=== PATIENT | female | born 1945 | race Caucasian/White ===

== ENCOUNTER 2017-03-03 08:00 | Inpatient (IN) | payer MEDICARE, OTHER ==
[~2017-03-03 08:00] MED LIST: ACETAMINOPHEN 1,000 MG/100 ML BTL IV ONE; CELECOXIB 100 MG CAPSULE PO ONE; FAMOTIDINE 20MG TABLET PO ONE; MECLIZINE 25 MG TABLET PO ONE; METOCLOPRAMIDE 10 MG TABLET PO ONE; VANCOMYCIN HCL 1,000 MG in 0.9 % SODIUM CHLORIDE 250ML 250 ML IVPB ONE
[2017-03-16] MEDS ORDERED: CELECOXIB 100 MG CAPSULE PO ONE (06:00)
[2017-03-16] MEDS ORDERED: METOCLOPRAMIDE 10 MG TABLET PO ONE (06:00)
[2017-03-16] MEDS ORDERED: FAMOTIDINE 20MG TABLET PO ONE (06:00)
[2017-03-16] MEDS ORDERED: ACETAMINOPHEN 1,000 MG/100 ML BTL IV ONE (06:00)
[2017-03-16] MEDS ORDERED: MECLIZINE 25 MG TABLET PO ONE (06:00)
[2017-03-16] MEDS ORDERED: VANCOMYCIN HCL 1,000 MG in 0.9 % SODIUM CHLORIDE 250ML 250 ML IVPB ONE (06:00)
[2017-03-16 10:49] LABS: BASO % 0.5 % (0-6); GRAN % 79.1 % (47-80); HEMATOCRIT 33.6 % (35.0-47.0); HEMOGLOBIN 9.9 gm/dl (11.6-16.0); LYMPH % 12.1 % (16-45); MEAN CELL VOLUME 82.4 fl (81-97); MEAN CORPUSCULAR HGB CONC 29.5 g/dl (32-36); MEAN PLATELET VOLUME 8.5 fl (7.4-10.4); MONO % 7.3 % (0-9); PLATELET COUNT 478 K/uL (130-400); RED BLOOD COUNT 4.08 M/uL (3.80-5.40); RED CELL DISTRIBUTION WIDTH 19.5 % (11.5-14.5)
[2017-03-16 10:51] LABS: MEAN CORPUSCULAR HEMOGLOBIN 24.2 pg (27-33)
[2017-03-16 11:27] LABS: ABO GROUP O; ANTIBODY SCREEN NEGATIVE (NEGATIVE); RH TYPE POSITIVE
[2017-03-16] MEDS ORDERED: HYDROMORPHONE HCL 2 MG/ML VIAL IV ONE ×2 (13:17→14:00)
[2017-03-16] MEDS ORDERED: FENTANYL PF 100MCG/2ML VIAL IV ONE (14:00)
[2017-03-16] MEDS ORDERED: *PACU ONLY* KETAMINE HCL 10 MG/ML (20ML) VIAL IV ONE (14:00)
[2017-03-16] MEDS ORDERED: MIDAZOLAM HCL 2MG/2ML VIAL IV ONE (14:00)
[2017-03-16] MEDS ORDERED: HYDROMORPHONE HCL 1 MG/ML SYRINGE IM PRN (15:12)
[2017-03-16] MEDS ORDERED: MAGNESIUM HYDROXIDE 30 ML UDC PO PRN (15:12)
[2017-03-16] MEDS ORDERED: METOCLOPRAMIDE HCL 10 MG/2 ML VIAL IVP PRN (15:12)
[2017-03-16] MEDS ORDERED: HYDROCODONE/APAP 5/325MG TABLET PO PRN ×2 (15:12)
[2017-03-16] MEDS ORDERED: ACETAMINOPHEN 325 MG TAB PO PRN (15:12)
[2017-03-16] MEDS ORDERED: AL HYDROX/MAG HYDROX 30ML UD PO PRN (15:12)
[2017-03-16] MEDS ORDERED: HYDROMORPHONE HCL 2 MG/ML VIAL IM PRN (15:12)
[2017-03-16] MEDS ORDERED: BISACODYL 10 MG SUPP RC PRN (15:12)
[2017-03-16] MEDS ORDERED: NALOXONE 0.4 MG/1 ML VIAL IVP PRN (15:12)
[2017-03-16] MEDS ORDERED: TRAMADOL HCL 50 MG TABLET PO PRN ×2 (15:12)
[2017-03-16] MEDS ORDERED: PROMETHAZINE HCL 12.5 MG in 0.9 % SODIUM CHLORIDE 100ML 50 ML IVPB PRN (15:12)
[2017-03-16] MEDS ORDERED: MORPHINE SULFATE 5 MG/ML PFS IVP PRN ×4 (15:12)
[2017-03-16] MEDS ORDERED: ACETAMINOPHEN W/ CODEINE 300MG/60MG TABLET PO PRN ×2 (15:12)
[2017-03-16] MEDS ORDERED: KETOROLAC 30 MG/ML VIAL IVP PRN ×2 (15:12)
[2017-03-16] MEDS ORDERED: ZOLPIDEM TARTRATE 5 MG TABLET PO PRN (15:12)
[2017-03-16] MEDS ORDERED: DIPHENHYDRAMINE HCL 25 MG CAPSULE PO PRN (15:12)
[2017-03-16] MEDS ORDERED: ACETAMINOPHEN W/ CODEINE 300MG/30MG TABLET PO PRN ×2 (15:12)
[2017-03-16] MEDS ORDERED: ONDANSETRON HCL IV 4 MG/2 ML VIAL IVP PRN (15:12)
[2017-03-16] MEDS ORDERED: HYDROCODONE/APAP 7.5/325MG TABLET PO PRN (15:12)
[2017-03-16] MEDS: PANTOPRAZOLE SODIUM 40 MG TABLET PO SCH (19:34)
[2017-03-16] MEDS: HYDROCODONE/APAP 7.5/325MG TABLET PO PRN (21:01)
[2017-03-16] MEDS: FERROUS SULFATE 325 MG TAB PO SCH (21:05)
[2017-03-16] MEDS: DOCUSATE SODIUM 100 MG CAPSULE PO SCH (21:05)
[2017-03-16] MEDS: DEXTROSE 5 % AND 0.9 % NACL 1,000 ML IV PRN (23:59)
[2017-03-17] MEDS: VANCOMYCIN HCL 1,000 MG in DEXTROSE 5 % IN WATER 250 ML IVPB SCH ×4 (00:11→11:36)
[2017-03-17] MEDS: HYDROCODONE/APAP 7.5/325MG TABLET PO PRN ×3 (03:00→13:32)
[2017-03-17] MEDS: PANTOPRAZOLE SODIUM 40 MG TABLET PO SCH (06:19)
[2017-03-17 06:55] LABS: HEMATOCRIT 28.8 % (35.0-47.0); HEMOGLOBIN 8.7 gm/dl (11.6-16.0)
--- NOTE | 2017-03-17 07:20 | RADIOLOGY REPORT ---
EXAM: LEFT HIP HISTORY: LEFT HIP ARTHROPLASTY PERFORMED TODAY. TECHNIQUE: A single view of the left hip was obtained. Comparison: None. FINDINGS: There is a left hp prosthesis present. There is no fracture, dislocation or complicating process identified. IMPRESSION: 1. LEFT HIP PROSTHESIS PRESENT. 2. OTHERWISE UNREMARKABLE LEFT HIP EXAMINATION. JOB NUMBER: [id number] MTDD
[2017-03-17] MEDS: DEXTROSE 5 % AND 0.9 % NACL 1,000 ML IV PRN (09:38)
[2017-03-17] MEDS: DOCUSATE SODIUM 100 MG CAPSULE PO SCH (09:41)
[2017-03-17] MEDS: FERROUS SULFATE 325 MG TAB PO SCH (09:41)
[2017-03-17] MEDS ORDERED: CELECOXIB 100 MG CAPSULE PO SCH (10:00)
[2017-03-17] MEDS ORDERED: RIVAROXABAN 10 MG TABLET PO SCH (10:00)
[2017-03-17] MEDS ORDERED: HYDROMORPHONE HCL 2 MG/ML VIAL IV ONE (10:14)
[2017-03-17] MEDS ORDERED: VANCOMYCIN HCL 1 GM VIAL IVPB ONE (10:37)
[2017-03-17] MEDS ORDERED: TRANEXAMIC ACID 1,000 MG/10 ML ML IV ONE (10:37)
--- NOTE | 2017-03-17 10:54 | Rehab Evaluation ---
Patient Information - Patient Information Diagnosis: OA left hip Ordered Treatment: PT Evaluate and Treat Status: Initial Evaluation Surgery: Yes (VIRGILIO left hip) Date of Surgery: 03/17/17 Past Medical/Surgical Hx: PAST MEDICAL/SURGICAL HISTORY Past Surgical History bladder repair RTHA x's 2 hyst nephrectomy left donation oral sx PMH - Respiratory Hx Respiratory Disorders No PMH - Cardiovascular Hx Cardiovascular Disorders No Exercise Tolerance Poor Hx of Migraines Yes: with stress PMH - Neuro Hx Neurological Disorders Yes Hx Headaches Yes PMH - GI Hx Gastrointestinal Disorders Yes Hx Gastroesophageal Reflux Yes Hx of Loss of Appetite Yes: cant eat due to pain Comment: prolapsed rectum PMH - Hx Genitourinary Disorders Yes Hx Bladder Problem Yes: stress incontinence Comment: pt has one kidney PMH - Endocrine Hx Endocrine Disorders No PMH - Musculoskeletal Hx Musculoskeletal Disorders Yes Hx Arthritis Yes Hx Fibromyalgia Yes PMH - Psych Hx Psychiatric Problems Yes Hx Anxiety Yes Hx Depression Yes PMH - Hematology/Oncology Hx Hematology/Oncology Yes Disorders Hx Cancer Yes: 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 Able to do brief eval UES and LES then reviewed hip precautions for left hip, patient able to perform exercises for left hip: heel slide, SLR with assist , quad, glut and ham sets, ankle pumps with minimal pain. Supine to sit with min assist with left LE then sit to stand with verbal cues and CGA for safety with standard walker. Able to ambulate to bathroom with very little assist to use toilet then ambulated into mcallister with proper assist about 100 feet and back to room. Into bed with very little assist then re-attached compressive stockings. OT waiting to work on dressing with patient.) Subjective Information - Subjective Information Per Patient Objective Data - Pain Pain Present: Yes Pain Scale Used: Numeric (1 - 10) (5/10) - Mental Status Patient Orientation: Oriented x3 - Visual Perception Appears within normal limits for therapeutic activities - ROM Within normal limits (except left hip decreased as expected secondary to surgery about 50%.) - Strength/Tone Within normal limits (except left hip decreased about 3/5 except left hip flexors 3-/5) - Coordination Appears within normal limits for therapeutic activities (Some decrease in balance secondary to surgery.) - Bed Mobility Needs Assist (Using trapeze to pull up in bed but believe patient will do well at home with husbands assist.) - Transfers Needs Assist (Only needs slight assist with left LE) - Balance Balance Sitting: Good Balance Standing: Fair - Sensation Intact - Gait Detail (Using standard walker in hospital, has FWW for home and comfortable with same since had other hip replaced three years ago and left hip has been getting worse for some time.) - Special Tests No Therapy Assessment - Therapy Assessment Detail (Patient doing quite well post-surgery and should be able to be discharged home this afternoon after check out on stairs. Not able to do stairs this am secondary to IV.) Patient Education - Patient Education Teaching Topic: Equipment Use, Exercise/Activity, Precautions Response: Return Demonstration Teaching Method: Discussion, Demonstration Teaching Recipient: Patient, Family Barriers To Learning: None Problem List - Problem List Physical Therapy Problem List: Detail (Patient has some issues with decreased mobility, gait and has not performed stairs yet. Exercises going well but having difficulty not letting left hip roll inward.) Goals - Goals Physical Therapy Goals: Patient will be able to demonstrate competency with steps to get into her home, independence with getting into and out of bed, exercises and review hip precautions. Prognosis - Prognosis Good (Expect patient will be able to perform steps this afternoon and working on all other goals so can go home today.) Plan - Plan Physical Therapy Plan: Continue PT this afternoon and check out on stairs, work on longer gait distance, exercises, bed mobility and hip precautions. If patient needs to stay another night, will determine if has passed goals of PT on next visit this afternoon.
--- NOTE | 2017-03-17 13:31 | Rehab Evaluation ---
Patient Information - Patient Information Diagnosis: OA left hip Ordered Treatment: OT Evaluate and Treat Status: Initial Evaluation Surgery: Yes (VIRGILIO left hip) Date of Surgery: 03/17/17 Past Medical/Surgical Hx: PAST MEDICAL/SURGICAL HISTORY Past Surgical History bladder repair RTHA x's 2 hyst nephrectomy left donation oral sx PMH - Respiratory Hx Respiratory Disorders No PMH - Cardiovascular Hx Cardiovascular Disorders No Exercise Tolerance Poor Hx of Migraines Yes: with stress PMH - Neuro Hx Neurological Disorders Yes Hx Headaches Yes PMH - GI Hx Gastrointestinal Disorders Yes Hx Gastroesophageal Reflux Yes Hx of Loss of Appetite Yes: cant eat due to pain Comment: prolapsed rectum PMH - Hx Genitourinary Disorders Yes Hx Bladder Problem Yes: stress incontinence Comment: pt has one kidney PMH - Endocrine Hx Endocrine Disorders No PMH - Musculoskeletal Hx Musculoskeletal Disorders Yes Hx Arthritis Yes Hx Fibromyalgia Yes PMH - Psych Hx Psychiatric Problems Yes Hx Anxiety Yes Hx Depression Yes PMH - Hematology/Oncology Hx Hematology/Oncology Yes Disorders Hx 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 Laundry located on 1st floor. Pt has very supportive spouse who is retired and avaliable to assist whenever needed. Pt has a walk in shower w/ curtain enclosure, hand held shower head, grab bars around toilet and in shower, shower chair, and raised toilet seat. Pt has 3 straight canes and a 4WW w/ seat.) Precautions: None given, [place], Fall - Time With Patient Total Time Spent With Patient (Min): 25 Treatment Procedures: Detail (OT eval LOW) Objective Data - Pain Pain Present: Yes Pain Intensity: 4 Pain Scale Used: Numeric (1 - 10) - Mental Status Patient Orientation: Oriented x3 - Visual Perception Appears within normal limits for therapeutic activities - ROM Within normal limits (BUE's) - Strength/Tone Within normal limits (BUE's) - Coordination Appears within normal limits for therapeutic activities - Bed Mobility Needs Assist (min A for LLE movment off/on bed) - Transfers Independent (sit <> stand t/f using 2 WW) - Balance Balance Sitting: Good Balance Standing: Fair (uses support of 2WW to pull pants over hips.) - Sensation Intact (ifeanyi hands) - ADL's/IADL's Detail (Pt was educated on and demonstrated understanding of modified LB drsg techniques using adaptive equipment such as cutlet maker pork, sock aid, LH sponge, and LH shoe horn. Pt was ind using AD for LB drsg. Pt states (and spouse agrees) that spouse will assist w/ socks and shoes. Pt has a cutlet maker pork at home and will not need to purchase any equipment at this time.) Therapy Assessment - Therapy Assessment Detail (Pt ind and safe w/ LB modified drsg technique. No further inpatient OT needed at this time.) Problem List - Problem List Physical Therapy Problem List: Detail (Patient has some issues with decreased mobility, gait and has not performed stairs yet. Exercises going well but having difficulty not letting left hip roll inward.) Goals - Goals Physical Therapy Goals: Patient will be able to demonstrate competency with steps to get into her home, independence with getting into and out of bed, exercises and review hip precautions. Prognosis - Prognosis Good Plan - Plan Physical Therapy Plan: Continue PT this afternoon and check out on stairs, work on longer gait distance, exercises, bed mobility and hip precautions. If patient needs to stay another night, will determine if has passed goals of PT on next visit this afternoon. Occupational Therapy Plan: No further inpatient OT needed at this time
--- NOTE | 2017-03-17 15:24 | Physical Therapy Tx Note ---
Physical Therapy Tx Note - Treatment Note Tolerated: Good (Patient did extremely well with lunch and getting dressed today , has been up to bathroom. In pm, walked in mcallister to stairs, about 75 feet with standard walker and WBAT, CGA; ambulated down three steps with proper technique using rail and folded walker then used walker to turn around and walked up three steps using rail and folded walker, min assist for safety. Able to ambulate back to room with CGA and standard walker with good technique. Into bed with very little assist with left LE. Able to review exercises and hip precautions.) Total Time Spent With Patient: 30 Physical Therapy Tx Note: Detail (As above, able to perform stairs, exercises, gait with standard walker WBAT, hip precaution review.) Physical Therapy Problem List: Detail (Patient has some issues with decreased mobility, gait and has not performed stairs yet in am day after surgery. Exercises going well but having difficulty not letting left hip roll inward.) Physical Therapy Goals: Patient will be able to demonstrate competency with steps to get into her home, independence with getting into and out of bed, exercises and review hip precautions. Prognosis: Good (Patient has passed all therapy goals and ready for discharge home with .) Physical Therapy Plan: Continue PT this afternoon and check out on stairs, work on longer gait distance, exercises, bed mobility and hip precautions. If patient needs to stay another night, will determine if has passed goals of PT on next visit this afternoon.
--- NOTE | 2017-03-20 09:29 | Discharge Summary ---
DATE: 03/17/2017 HISTORY: This is a 72-year-old female with end-stage left hip arthrosis. Failed nonoperative treatment. Scheduled for left total hip arthroplasty. HOSPITAL COURSE: The patient was admitted on the date of procedure, 03/16/2017. Tolerated well. Had 200 mL of blood loss. Postop she was afebrile, vital signs stable. Neurovascularly intact. Dressing clean, dry, and intact. She had Xarelto for DVT prophylaxis. Pain medication. Antibiotics. Sent to the floor for total hip rehab protocol. Hospital course was uncomplicated. She had acute asymptomatic blood loss anemia. Hemoglobin was 8.6 postop day 1. She did well with therapy and was discharged home on postop day 1. Home with therapy nurse with [facility]. Will continue pre-admission medication with sleeping pill, pain pill, iron, and Xarelto. She will follow up in 2 weeks. REJI
--- NOTE | 2017-03-20 09:30 | Operative Note ---
DATE OF SURGERY: 03/16/2017 PREOPERATIVE DIAGNOSIS: End-stage left hip arthrosis. POSTOPERATIVE DIAGNOSIS: End-stage left hip arthrosis. OPERATION: Left total hip arthroplasty. Surgeon: Raghavendra Antony MD Anesthesia: Spinal. COMPLICATIONS: None. Estimated Blood Loss: Minimal. OPERATIVE FINDINGS: [id number] hip arthrosis. COMPONENTS PLACED: A 2 g vancomycin Mitchell [employer] Nephew cemented Synergy collared stem size 14 high offset with a 32 minus 4 mm cobalt chrome femoral head component, a 50 mm 3-hole Reflection acetabular 2-screw component with 1 acetabular screw, 2 screw caps, centrally-threaded screw cap, and a 35-degree highly cross-linked polyethylene liner. Indications: This is a 72-year-old female who is well known to myself. She is status post right hip arthroplasty done years ago with another surgeon. She is now scheduled for left. She has severe [id number] arthrosis with deformity and she is scheduled for the procedure above. I explained all risks and benefits in detail for the diagnosis and procedure including but not limited to infection, nerve injury, vessel injury, persistent pain, stiffness, numbness, tingling in hip, periprosthetic fracture, need for resection arthroplasty if components are infected or loosen, blood clot, and need for further procedures. All of her questions were answered. The course was outlined. She agreed to proceed. PROCEDURE: The patient brought to the OR and placed in the right lateral decubitus position. The left hip and lower extremity prepped and draped in sterile fashion. Prepped using Chloraprep and draped. A general timeout was performed. Next, a posterior approach incision was marked over the hip. It was infiltrated with 0.5% Marcaine with epinephrine. Skin and subcutaneous dissected down to gluteal fascia. Gluteal fascia split longitudinally. The subgluteal plane was bluntly dissected. Brought in self-retainer. Identified the sciatic nerve, carefully protected at all times. Next, removed the short external rotators, tagged them with #2 Vicryl, cut the capsule and released it proximally and distally and dislocated the femoral head without difficulty. Next, then resected the femoral head about 1.5 cm below the lesser trochanter. Inserted the box osteotome, started reaming by hand working 7 mm, working in 1 mm increments up to size 14. We stopped there to broach a 12. Calcar plane on a 13 and then a 14. We stopped there, as it fit the proximal nicely. Attention then to the acetabulum. Released the capsule anteriorly. Placed the retractor there to retract the proximal femur. Inferior acetabular retractor was placed. We excised the labrum, capsule around the periphery of the acetabulum. She had central erosion pattern. Next, we started reaming in 45 degrees inclination 20 degrees anteversion to ream up to a size 49. We trialed a 50, and it fit nicely medially with down flush. Then we then changed gloves. Irrigated copiously. Impacted down the real 3-hole acetabular shell with a helicopter guide in 45 degrees inclination and 20 degrees anteversion until it was flush medially. Next, we drilled a posterior central superior quadrant screw hole, measured for a 35 mm screw, inserted that screw that had excellent purchase. Next, we placed a trial liner and did a trial reduction. Best combination range of motion, stability, and leg length was with a -4 mm femoral head component high offset neck. This allowed for good abductor tension flexion 90. The hip dislocated still with extension, extra rotation, symmetric leg lengths. Next, we removed all trial components. We then irrigated the acetabulum copiously. Placed 2 screw caps, centrally threaded screw cap, impacted down the real 35-degree hooded highly cross-linked polyethylene liner with the miller in posterior superior quadrant. Next, we placed the cement distally in the femoral canal, injected the cement symmetrically with a suction catheter and inserted the real collar and femoral stem until the collar was flush with the medial calcar again in 15 degrees of anteversion and held it until the cement hardened. We cleaned and dried the trunnion and packed down the real cobalt chrome femoral head component, reduced the hip and found the range of motion revealed the same. We irrigated copiously. We repaired the short external rotators to the abductors with #2 Vicryl stitch. Irrigated again, closed with 2-0 fascial running #2 Quill suture. Irrigated again, closed the skin with 2-0 Vicryl and then zip line was used to close the skin. Previously was injected with multiple sticks of 0.5% Marcaine with epi, 2 g of tranexamic acid and our Exparel mixture around the entire periphery to superficial gluteal muscle, abductors, subcutaneous area. Patient tolerated the procedure well. No intraoperative complications. All sponge and needle counts correct. Recovery stable. Postop x-ray revealed good fit, orientation of components. Placed an abduction pillow. She will likely be discharged tomorrow. REJI
== END 2017-03-17 15:15 | disposition home health service (06) | DRG 470 ==
LOC: MEDSURG 03-16 10:32
PROVIDERS: ADMIT Orthopaedic Surgery; ATTEND Orthopaedic Surgery
PROC: 0SRB069 Replacement of Left Hip Joint with Oxidized Zirconium on Polyethylene Synthetic Substitute, Cemented, Open Approach (ICD-10-PCS; principal; 2017-03-16 13:00)
DX: M16.12 Unilateral primary osteoarthritis, left hip (principal); Z90.5 Acquired absence of kidney
CPT/HCPCS: 85014; 85018; 85025; 86850; 86900; 86901; 97110; 97116; 97165; J7042; J7060

== ENCOUNTER 2017-08-06 14:39 | Emergency (ER) | payer MEDICARE, OTHER ==
[2017-08-06] MEDS ORDERED: ONDANSETRON HCL IV 4 MG/2 ML VIAL IVP ONE (15:13)
[2017-08-06] MEDS ORDERED: 0.9 % SODIUM CHLORIDE 1,000 ML BAG IV ONE ×2 (15:22→17:32)
[2017-08-06] MEDS ORDERED: METOCLOPRAMIDE HCL 10 MG/2 ML VIAL IVP ONE (15:23)
[2017-08-06] MEDS ORDERED: DIPHENHYDRAMINE HCL 50 MG/ML VIAL IVP ONE (15:23)
--- NOTE | 2017-08-06 15:26 | Emergency Department Record ---
History of Present Illness - General Chief complaint: Nausea, Vomiting, Diarrhea Stated complaint: VOMITING,DIARRHEA,HEADACHE Time Seen by Provider: 08/06/17 15:03 Source: Patient Mode of Arrival: Wheelchair Limitations: No limitations - History of Present Illness Initial comments: The patient is here due to a 4-5 day hx of frequent watery diarrhea with now vomiting. She is having some abdominal cramping prior to the vomiting but denies any fever, chills, blood in the stool or vomit or dysuria. The patient states now she is having a migraine KRAFT which is typical for her when she gets sick. There is no hx of CP, SOB, back pain, or visual changes. MD complaint: Diarrhea, Nausea, Vomiting Onset/Timin -: Days(s) Description of Vomiting: Watery Severity: Moderate Severity scale (1-10): 10 Quality: Aching - Related Data Home Medications Medication Instructions Recorded Confirmed Last Taken Aspirin 325 mg PO DAILY 08/06/17 08/06/17 1 Day Ago ~08/05/17 Ibuprofen 200 mg Tablet [Motrin 200 mg PO Q8H PRN 08/06/17 08/06/17 1 Day Ago 200Mg] ~08/05/17 Metoprolol Tartrate 25 mg PO DAILY 08/06/17 08/06/17 1 Day Ago ~08/05/17 Omeprazole 40 mg PO DAILY 08/06/17 08/06/17 1 Day Ago ~08/05/17 Previous Rx's Medication Instructions Recorded Ondansetron [Zofran Odt] 4 mg SL .Q4-6H PRN #12 tab.rapdis 08/06/17 Allergies Allergy/AdvReac Type Severity Reaction Status Date / Time Sulfa (Sulfonamide Allergy HIVES Verified 08/06/17 14:54 Antibiotics) Travel Screening - Travel/Exposure Within Last 30 Days Have you traveled within the last 30 days?: No - Travel/Exposure Within Last Year Have you traveled outside the [place] in the last year?: No - Additonal Travel Details Have you been exposed to anyone with a communicable illness?: No - Travel Symptoms Symptom Screening: None Review of Systems Constitutional: Denies: Chills, Fever Eyes: Denies: Eye discharge ENT: Denies: Congestion Respiratory: Denies: Cough, Dyspnea Past Medical History - SOCIAL HISTORY Smoking Status: Never smoker Alcohol Use: None Drug Use: None - RESPIRATORY Hx Respiratory Disorders: No - CARDIOVASCULAR Hx Cardio Disorders: No - NEURO Hx Neuro Disorders: Yes Hx Headaches: Yes Hx of Migraines: Yes (with stress) - GI Hx GI Disorders: Yes Hx Reflux: Yes Comment:: prolapsed rectum - Hx Genitourinary Disorders: Yes Hx Bladder Problem: Yes (stress incontinence) Comment:: pt has one kidney - ENDOCRINE Hx Endocrine Disorders: No - MUSCULOSKELETAL Hx Musculoskeletal Disorders: Yes Hx Arthritis: Yes Hx Fibromyalgia: Yes - PSYCH Hx Psych Problems: Yes Hx Anxiety: Yes Hx Depression: Yes - HEMATOLOGY/ONCOLOGY Hx Hematology/Oncology Disorders: Yes Hx Cancer: Yes (3 little tumors in liver, pancrease and bowel told not to worry low grade) Family Medical History Any Significant Family History?: Yes Hx Cancer: Mother Hx Heart Disease: Mother Hx Kidney Disease: Brother/Sister Hx Resp Disorders: Father Physical Exam - General General Appearance: Alert, Oriented x3, Cooperative, No acute distress - Head Head exam: Atraumatic, Normocephalic, Normal inspection - Eye Eye exam: Normal appearance, PERRL, EOMI - ENT Throat exam: Normal inspection. negative: Tonsillar erythema, Tonsillar exudate - Neck Neck exam: Normal inspection, Full ROM. negative: Tenderness - Respiratory Respiratory exam: Normal lung sounds bilaterally. negative: Respiratory distress - Cardiovascular Cardiovascular Exam: Regular rate, Normal rhythm, Normal heart sounds - GI/Abdominal GI/Abdominal exam: Soft, Normal bowel sounds. negative: Rebound, Rigid, Tenderness - Extremities Extremities exam: Normal inspection, Full ROM, Normal capillary refill. negative: Tenderness - Neurological Neurological exam: Alert, Normal gait. negative: Abnormal gait, Motor sensory deficit Course Vital Signs 08/06/17 14:47 Temperature 98.1 F Pulse Rate 69 Respiratory 20 Rate Blood Pressure 207/116 Pulse Ox 99 - Reevaluation(s) Reevaluation #1: The patient is doing a little better at this time but is still having the KRAFT. Her nausea has resolved and she thinks she did vomit her Metoprolol up when she took it this AM. Due to that fact we will order a dose here. 08/06/17 16:37 Reevaluation #2: The patient is feeling a good bit better at this time. She is now resting comfortably with no nausea or abdominal pain. 08/06/17 17:02 Reevaluation #3: The patient is doing a lot better at this time. Her KRAFT is almost gone and her nausea is gone. She is taking fluids well with no nausea or vomiting with no abdominal pain. I did discuss the CT results and the need for F/U with her PCP and also for the MRI with contrast that is recommended. She is ready for home and will F/U later this week. 08/06/17 18:04 Medical Decision Making - Data Complexity MDM Data: Labs Ordered and/or Reviewed, X-Ray Ordered and/or Reviewed - Lab Data Result diagrams: 08/06/17 15:07 08/06/17 15:07 - Radiology Data Radiology results: Report reviewed (Head CT: No acute changes, Possible assymetrical L frontal deep white matter change. Recommend MRI.) Disposition Disposition: Discharge Clinical Impression: Gastroenteritis Disposition: Home, Self-Care Condition: (2) Stable Instructions: Acute Nausea and Vomiting (ED) Additional Instructions: Please continue your regular medicines and add the Zofran if needed. Please see your family doctor for recheck next week and also to go over the official CT report to have the MRI with contrast possibly ordered. Please return to the ER for any worsening symptoms. Prescriptions: Ondansetron [Zofran Odt] 4 mg SL .Q4-6H PRN #12 tab.rapdis PRN Reason: Nausea Forms: Patient Portal Access Time of Disposition: 18:07 Quality - Quality Measures Quality Measures: N/A - Blood Pressure Screening View Details: Yes Does Patient Have Any of the Following: Active Dx of HTN Blood Pressure Classification: Hypertensive Reading Systolic Measurement: 207 Diastolic Measurement: 116 Screening for High Blood Pressure: Patient Exclusion, Hx of HTN [G9744]
[2017-08-06 15:48] LABS: BASO % 0.8 % (0-6); EOS % 0.5 % (0-6); GRAN % 76.6 % (47-80); HEMATOCRIT 41.2 % (35.0-47.0); HEMOGLOBIN 13.1 gm/dl (11.6-16.0); MEAN CELL VOLUME 72.2 fl (81-97); MEAN CORPUSCULAR HEMOGLOBIN 22.9 pg (27-33); MEAN CORPUSCULAR HGB CONC 31.8 g/dl (32-36); MEAN PLATELET VOLUME 8.6 fl (7.4-10.4); MONO % 6.1 % (0-9); RED BLOOD COUNT 5.71 M/uL (3.80-5.40); WHITE BLOOD COUNT W/O DIFF 12.5 K/uL (4.2-12.2)
[2017-08-06 15:50] LABS: PLATELET COUNT 714 K/uL (130-400); RED CELL DISTRIBUTION WIDTH 21.6 % (11.5-14.5)
[2017-08-06 16:10] LABS: ALBUMIN 3.9 g/dL (4.0-5.0); ALKALINE PHOSPHATASE 219 U/L (35-104); ALT/SGPT 38 U/L (<33); AST/SGOT 32 U/L (10.0-35.0); BLOOD UREA NITROGEN 9 mg/dL (8-23)
[2017-08-06 16:11] LABS: CREATININE 0.6 mg/dL (0.5-0.9); EST GLOMERULAR FILTRATION RATE > 60 mL/min; GLUCOSE,RANDOM 113 mg/dL (74-109); LIPASE 35 U/L (13-60); TOTAL PROTEIN 7.6 g/dL (6.6-8.7)
[2017-08-06 16:12] LABS: BILIRUBIN,DIRECT < 0.2 mg/dL (0-0.3)
[2017-08-06 16:15] LABS: URINE APPEARANCE CLEAR; URINE BILIRUBIN NEGATIVE (NEGATIVE); URINE BLOOD TRACE-I (NEGATIVE); URINE COLOR YELLOW; URINE GLUCOSE (UA) NEGATIVE (NEGATIVE); URINE KETONE NEGATIVE (NEGATIVE); URINE LEUKOCYTE ESTERASE NEGATIVE (NEGATIVE); URINE NITRITE NEGATIVE (NEGATIVE); URINE UROBILINOGEN 0.2 E.U./dL (0.20 - 1.00)
[2017-08-06] MEDS ORDERED: HYDROMORPHONE HCL 2 MG/ML VIAL IVP ONE (16:18)
[2017-08-06 16:19] LABS: URINE EPITHELIAL CELLS NONE SEEN (FEW); URINE RBC 0 - 2 (NONE SEEN); URINE WBC 0 - 2 (0-2/hpf)
[2017-08-06] MEDS ORDERED: KETOROLAC 30 MG/ML VIAL IVP ONE (16:19)
[2017-08-06 16:20] LABS: URINE BACTERIA FEW
[2017-08-06] MEDS ORDERED: METOPROLOL SUCC 50 MG TABLET PO ONE (16:36)
--- NOTE | 2017-08-07 13:46 | CT SCAN REPORT ---
EXAM: EMERGENCY HEAD CT HISTORY: HEADACHE FOR TWO DAYS. TECHNIQUE: Axial CT scan of the head was performed without IV contrast. Comparison: None. Encounter: Not applicable. FINDINGS: No definite acute intracranial hemorrhage identified. No focal mass effect or midline shift apparent. Mild generalized atrophy. Chronic appearing deep white matter changes, nonspecific, but likely representing some chronic small vessel deep white matter ischemic disease. There is mildly a symmetrically prominent low attenuation on the left in the region of the deep left frontal lobe. This may be some additional mildly asymmetric chronic deep white matter ischemic disease although is nonspecific. Follow-up brain MRI with contrast and diffusion weighted sequence would probably be useful for further evaluation. No depressed calvarial fracture evident. The visualized paranasal sinuses and mastoids appear clear. IMPRESSION: 1. NO ACUTE INTRACRANIAL HEMORRHAGE OR FOCAL MASS EFFECT EVIDENT. 2. SOME CHRONIC APPEARING DEEP WHITE MATTER CHANGES. MILD ASYMMETRY AND SOME LOW ATTENUATION IN THE DEEP LEFT FRONTAL LOBE OF UNCERTAIN SIGNIFICANCE. FOLLOW -UP BRAIN MRI WITH CONTRAST AND DIFFUSION WEIGHTED SEQUENCE SUGGESTED FOR FURTHER EVALUATION IF NOT CONTRAINDICATED. 3. THE PARANASAL SINUSES AND MASTOIDS APPEAR CLEAR. JOB NUMBER: [id number] MTDD
== END 2017-08-06 18:16 | disposition home or self-care (01) ==
LOC: ER 14:39
DX: K52.9 Noninfective gastroenteritis and colitis, unspecified (principal); R11.2 Nausea with vomiting, unspecified; R51 Headache
CPT/HCPCS: 99284 ×2; 96374; 96375; 96361; 83690; 85025; 80076; 80048; 81001; 70450; J1885; J2405; J1170; J1200; J2765; J7030

== ENCOUNTER 2018-03-04 11:07 | Emergency (ER) | payer MEDICARE, OTHER ==
[2018-03-04] MEDS ORDERED: HYDROMORPHONE HCL 2 MG/ML VIAL IVP ONE (12:31)
[2018-03-04] MEDS ORDERED: 0.9 % SODIUM CHLORIDE 1,000 ML BAG IV ONE (12:31)
[2018-03-04] MEDS ORDERED: ONDANSETRON HCL IV 4 MG/2 ML VIAL IV ONE (12:31)
[2018-03-04 12:40] LABS: HEMATOCRIT 48.7 % (35.0-47.0); HEMOGLOBIN 15.7 gm/dl (11.6-16.0); MEAN CELL VOLUME 80.9 fl (81-97); MEAN CORPUSCULAR HGB CONC 32.2 g/dl (32-36); MEAN PLATELET VOLUME 9.9 fl (7.4-10.4); PLATELET COUNT 462 K/uL (130-400); RED BLOOD COUNT 6.02 M/uL (3.80-5.40); WHITE BLOOD COUNT W/O DIFF 10.8 K/uL (4.2-12.2)
[2018-03-04 12:50] LABS: BLOOD UREA NITROGEN 10 mg/dL (8-23); CREATININE 0.8 mg/dL (0.5-0.9); EST GLOMERULAR FILTRATION RATE > 60 mL/min
[2018-03-04 12:51] LABS: TOTAL PROTEIN 9.1 g/dL (6.6-8.7)
[2018-03-04 12:53] LABS: GLUCOSE,RANDOM 147 mg/dL (74-109)
[2018-03-04 12:55] LABS: ALBUMIN 4.6 g/dL (4.0-5.0); ALKALINE PHOSPHATASE 177 U/L (35-104); ALT/SGPT 23 U/L (<33); AST/SGOT 33 U/L (10.0-35.0)
[2018-03-04 12:56] LABS: LIPASE 17 U/L (13-60)
[2018-03-04] MEDS ORDERED: KETOROLAC 30 MG/ML VIAL IVP ONE (14:14)
[2018-03-04 14:44] LABS: URINE APPEARANCE CLOUDY; URINE BILIRUBIN NEGATIVE (NEGATIVE); URINE BLOOD SMALL (NEGATIVE); URINE COLOR YELLOW; URINE GLUCOSE (UA) NEGATIVE (NEGATIVE); URINE KETONE NEGATIVE (NEGATIVE); URINE LEUKOCYTE ESTERASE SMALL (NEGATIVE); URINE NITRITE NEGATIVE (NEGATIVE); URINE UROBILINOGEN 0.2 E.U./dL (0.20 - 1.00)
[2018-03-04 14:51] LABS: URINE BACTERIA 1+; URINE EPITHELIAL CELLS 0 - 2 (FEW); URINE RBC 0 - 2 (NONE SEEN)
--- NOTE | 2018-03-04 15:04 | Emergency Department Record ---
History of Present Illness - General Chief complaint: Nausea, Vomiting, Diarrhea Stated complaint: VOMITTING, MIGRAINE,DIARREAH,CHILLS Time Seen by Provider: 03/04/18 12:23 Source: Patient, Family Mode of Arrival: Ambulatory Limitations: No limitations - History of Present Illness Initial comments: pt has had vomiting and diarrhea for the last 2 days multiple times. she also has a headache. MD complaint: Diarrhea, Nausea, Vomiting Onset/Timin -: Days(s) Description of Diarrhea: Water Location: Diffuse Radiation: None Severity: Moderate Severity scale (1-10): 8 Consistency: Constant Improves with: None Worsens with: None Associated Symptoms: Fever/chills, Headaches, Nausea/vomiting - Related Data Home Medications Medication Instructions Recorded Confirmed Last Taken Colchicine 0.6 mg PO DAILY 03/04/18 03/04/18 Unknown Previous Rx's Medication Instructions Recorded Cephalexin [Keflex] 500 mg PO BID #6 cap 03/04/18 Promethazine HCl [Phenergan] 12.5 mg PO Q8HR #7 tablet 03/04/18 Allergies Allergy/AdvReac Type Severity Reaction Status Date / Time Sulfa (Sulfonamide Allergy HIVES Verified 03/04/18 11:42 Antibiotics) Travel Screening - Travel/Exposure Within Last 30 Days Have you traveled within the last 30 days?: No Review of Systems Reviewed: No additional complaints except as noted below Constitutional: Reports: As per HPI. Denies: Chills, Fever, Malaise, Night sweats, Weakness, Weight change Eyes: Reports: As per HPI. Denies: Eye discharge, Eye pain, Photophobia, Vision change ENT: Reports: As per HPI. Denies: Congestion, Dental pain, Ear pain, Epistaxis , Hearing loss, Throat pain Respiratory: Reports: As per HPI. Denies: Cough, Dyspnea, Hemoptysis, Stridor, Wheezes Cardiovascular: Reports: As per HPI. Denies: Arrhythmia, Chest pain, Dyspnea on exertion, Edema, Murmurs, Orthopnea, Palpitations, Paroxysmal nocturnal dyspnea, Rheumatic Fever, Syncope Endocrine: Reports: As per HPI. Denies: Fatigue, Heat or cold intolerance, Polydipsia, Polyuria Gastrointestinal: Reports: As per HPI, Abdominal pain, Nausea, Vomiting. Denies : Constipation, Diarrhea, Hematemesis, Hematochezia, Melena Genitourinary: Reports: As per HPI. Denies: Abnormal menses, Discharge, Dyspareunia, Dysuria, Frequency, Hematuria, Incontinence, Retention, Urgency Musculoskeletal: Reports: As per HPI. Denies: Arthralgia, Back pain, Gout, Joint swelling, Myalgia, Neck pain Skin: Reports: As per HPI. Denies: Bruising, Change in color, Change in hair/ nails, Lesions, Pruritus, Rash Neurological: Reports: As per HPI. Denies: Abnormal gait, Confusion, Headache, Numbness, Paresthesias, Seizure, Tingling, Tremors, Vertigo, Weakness Psychiatric: Reports: As per HPI. Denies: Anxiety, Auditory hallucinations, Depression, Homicidal thoughts, Suicidal thoughts, Visual hallucinations Hematological/Lymphatic: Reports: As per HPI. Denies: Anemia, Blood Clots, Easy bleeding, Easy bruising, Swollen glands Past Medical History - SOCIAL HISTORY Smoking Status: Never smoker Alcohol Use: None Drug Use: None - RESPIRATORY Hx Respiratory Disorders: No - CARDIOVASCULAR Hx Cardio Disorders: Yes Hx Hypertension: Yes - NEURO Hx Neuro Disorders: Yes Hx Headaches: Yes Hx of Migraines: Yes (with stress) - GI Hx GI Disorders: Yes Hx Reflux: Yes Comment:: prolapsed rectum - Hx Genitourinary Disorders: Yes Hx Bladder Problem: Yes (stress incontinence) Comment:: pt has one kidney - ENDOCRINE Hx Endocrine Disorders: No - MUSCULOSKELETAL Hx Musculoskeletal Disorders: Yes Hx Arthritis: Yes Hx Fibromyalgia: Yes Comment:: gout - PSYCH Hx Psych Problems: Yes Hx Anxiety: Yes Hx Depression: Yes - HEMATOLOGY/ONCOLOGY Hx Hematology/Oncology Disorders: Yes Hx Cancer: Yes (3 little tumors in liver, pancrease and bowel told not to worry low grade) Family Medical History Any Significant Family History?: Yes Hx Cancer: Mother Hx Heart Disease: Mother Hx Kidney Disease: Brother/Sister Hx Resp Disorders: Father Physical Exam - General General Appearance: Alert, Oriented x3, Cooperative, Mild distress - Head Head exam: Normal inspection - Eye Eye exam: Normal appearance, PERRL, EOMI Pupils: Normal accommodation - ENT ENT exam: Normal exam, Mucous membranes moist, Normal external ear exam, Normal orophraynx Ear exam: Normal external inspection. negative: External canal tenderness Nasal Exam: Normal inspection. negative: Discharge, Sinus tenderness Mouth exam: Normal external inspection, Tongue normal Teeth exam: Normal inspection. negative: Dental caries Throat exam: Normal inspection. negative: Tonsillar erythema, Tonsillar exudate - Neck Neck exam: Normal inspection, Full ROM. negative: Tenderness - Respiratory Respiratory exam: Normal lung sounds bilaterally. negative: Respiratory distress - Cardiovascular Cardiovascular Exam: Regular rate, Normal rhythm, Normal heart sounds - GI/Abdominal GI/Abdominal exam: Soft, Normal bowel sounds. negative: Tenderness - Rectal Rectal exam: Deferred - exam: Deferred - Extremities Extremities exam: Normal inspection, Full ROM, Normal capillary refill. negative: Tenderness - Back Back exam: Reports: Normal inspection, Full ROM. Denies: Muscle spasm, Rash noted, Tenderness - Neurological Neurological exam: Alert, CN II-XII intact, Normal gait, Oriented X3 - Psychiatric Psychiatric exam: Normal affect, Normal mood - Skin Skin exam: Dry, Intact, Normal color, Warm Course Vital Signs 03/04/18 03/04/18 03/04/18 11:34 12:48 14:27 Temperature 98.6 F Pulse Rate 92 H Pulse Rate [ 95 H 76 Pulse Ox Probe] Respiratory 20 18 18 Rate Blood Pressure 208/132 Blood Pressure 193/105 158/95 [Left Arm] Pulse Ox 97 97 97 - Reevaluation(s) Reevaluation #1: 03/04/18 15:05 pt feels much better Medical Decision Making - Lab Data Result diagrams: 03/04/18 11:50 03/04/18 11:50 Lab Results 03/04/18 03/04/18 03/04/18 Range/Units 11:50 11:50 12:31 WBC 10.8 (4.2-12.2) K/uL RBC 6.02 H (3.80-5.40) M/uL Hgb 15.7 (11.6-16.0) gm/dl Hct 48.7 H (35.0-47.0) % MCV 80.9 L (81-97) fl MCH 26.0 L (27-33) pg MCHC 32.2 (32-36) g/dl RDW 18.0 H (11.5-14.5) % Plt Count 462 H (130-400) K/uL MPV 9.9 (7.4-10.4) fl Neutrophils % 81.0 H (47-80) % Eosinophils % Not Reportable Basophils % Not Reportable Lymphocytes 13.0 L (16-45) % Monocytes 4.0 (0-9) % Basophils 1.0 (0-6) % Eosinophil Count 1.0 (0-6) % Sodium 138 (136-145) mmol/L Potassium 4.5 (3.4-4.5) mmol/L Chloride 97 L (98-107) mmol/L Carbon Dioxide 19.0 L (22-29) mmol/L Anion Gap 22.0 H (7-16) BUN 10 (8-23) mg/dL Creatinine 0.8 (0.5-0.9) mg/dL Estimated GFR > 60 mL/min Random Glucose 147 H (74-109) mg/dL Calcium 10.3 H (8.8-10.2) mg/dL Total Bilirubin 0.50 (0.2-1.0) mg/dL AST 33 (10.0-35.0) U/L ALT 23 (<33) U/L Alkaline Phosphatase 177 H (35-104) U/L Total Protein 9.1 H (6.6-8.7) g/dL Albumin 4.6 (4.0-5.0) g/dL Globulin 4.5 (1.4-4.8) gm/dL Albumin/Globulin Ratio 1.0 L (1.1-1.8) Lipase 17 (13-60) U/L Urine Color Yellow Urine Appearance Cloudy Urine pH 6.0 (5.0-8.0) Ur Specific [place] 1.020 (1.002-1.030) Urine Protein 100 mg/dl H (NEGATIVE) Urine Glucose (UA) Negative (NEGATIVE) Urine Ketones Negative (NEGATIVE) Urine Blood Small H (NEGATIVE) Urine Nitrite Negative (NEGATIVE) Urine Bilirubin Negative (NEGATIVE) Urine Urobilinogen 0.2 (0.20 - 1.00) E.U./dL Ur Leukocyte Esterase Small H (NEGATIVE) Urine RBC 0 - 2 (NONE SEEN) Urine WBC 3 - 5 (0-2/hpf) Ur Epithelial Cells 0 - 2 (FEW) Urine Bacteria 1+ Disposition Disposition: Discharge Clinical Impression: Vomiting Qualifiers: Vomiting type: unspecified Vomiting Intractability: non-intractable Nausea presence: with nausea Qualified Code(s): R11.2 - Nausea with vomiting, unspecified Hypertension Qualifiers: Hypertension type: essential hypertension Qualified Code(s): I10 - Essential ( primary) hypertension Headache Qualifiers: Headache type: tension-type Headache chronicity pattern: episodic headache Intractability: not intractable Qualified Code(s): G44.219 - Episodic tension- type headache, not intractable UTI (urinary tract infection) Qualifiers: Urinary tract infection type: acute cystitis Hematuria presence: with hematuria Qualified Code(s): N30.01 - Acute cystitis with hematuria Disposition: Home, Self-Care Condition: (1) Good Instructions: Acute Nausea and Vomiting (ED), Chronic Hypertension (ED), Urinary Tract Infection in Women (ED) Additional Instructions: follow up with family doctor this week. return sooner if worse. push fluids. clear liquids only for 6 hours Prescriptions: Promethazine HCl [Phenergan] 12.5 mg PO Q8HR #7 tablet Cephalexin [Keflex] 500 mg PO BID #6 cap Forms: Patient Portal Access Quality - Quality Measures Quality Measures: N/A - Blood Pressure Screening Does Patient Have Any of the Following: Active Dx of HTN Blood Pressure Classification: Hypertensive Reading Systolic Measurement: 208 Diastolic Measurement: 132 Screening for High Blood Pressure: Patient Exclusion, Hx of HTN [G9744]
== END 2018-03-04 15:23 | disposition home or self-care (01) ==
LOC: ER 11:07
DX: G44.219 Episodic tension-type headache, not intractable (principal); N30.01 Acute cystitis with hematuria; R11.2 Nausea with vomiting, unspecified; R19.7 Diarrhea, unspecified; I10 Essential (primary) hypertension
CPT/HCPCS: 99284 ×2; 96374; 96375; 96361; 83690; 80053; 81001; 85027; J1885; J2405; J1170; J7030

== ENCOUNTER 2019-03-23 07:04 | Emergency (ER) | payer BC, MEDICARE ==
--- NOTE | 2019-03-23 07:34 | Emergency Department Record ---
History of Present Illness - General Chief Complaint: Abdominal Pain Stated Complaint: ABDOMINAL PAIN Time Seen by Provider: 03/23/19 07:22 Source: Patient Mode of Arrival: Wheelchair - History of Present Illness Initial Comments: Diarrhea started 5 days ago adn than vomiting and she thinks she ate bad food on monday gravey and turkey and has upper abd pain. PSH hysterectomy, nephrectomy and gave a kidney to her sister 20 years ago. hip surgery times two. right upper abd pain worse than left upper quad pain. Onset/Timin -: Days(s) Location: Periumbilical Severity: Moderate Severity scale (1-10): 10 Quality: Burning Consistency: Constant Improves With: Nothing Worsens With: Eating, Vomiting Associated Symptoms: Diarrhea, Nausea, Vomiting - Related Data Allergies Allergy/AdvReac Type Severity Reaction Status Date / Time Sulfa (Sulfonamide Allergy HIVES Verified 03/23/19 07:09 Antibiotics) Travel Screening - Travel/Exposure Within Last 30 Days Have you traveled within the last 30 days?: No - Travel/Exposure Within Last Year Have you traveled outside the [place] in the last year?: No - Additonal Travel Details Have you been exposed to anyone with a communicable illness?: No - Travel Symptoms Symptom Screening: None Review of Systems Reviewed: No additional complaints except as noted below Constitutional: Reports: As per HPI. Denies: Chills, Fever, Malaise, Night sweats, Weakness, Weight change Eyes: Reports: As per HPI. Denies: Eye discharge, Eye pain, Photophobia, Vision change ENT: Reports: As per HPI. Denies: Congestion, Dental pain, Ear pain, Epistaxis, Hearing loss, Throat pain Respiratory: Reports: As per HPI. Denies: Cough, Dyspnea, Hemoptysis, Stridor, Wheezes Cardiovascular: Reports: As per HPI. Denies: Arrhythmia, Chest pain, Dyspnea on exertion, Edema, Murmurs, Orthopnea, Palpitations, Paroxysmal nocturnal dyspnea, Rheumatic Fever, Syncope Endocrine: Reports: As per HPI. Denies: Fatigue, Heat or cold intolerance, Polydipsia, Polyuria Gastrointestinal: Reports: As per HPI, Abdominal pain, Diarrhea, Nausea, Vomiting. Denies: Constipation, Hematemesis, Hematochezia, Melena Genitourinary: Reports: As per HPI. Denies: Abnormal menses, Discharge, Dyspareunia, Dysuria, Frequency, Hematuria, Incontinence, Retention, Urgency Musculoskeletal: Reports: As per HPI. Denies: Arthralgia, Back pain, Gout, Joint swelling, Myalgia, Neck pain Skin: Reports: As per HPI. Denies: Bruising, Change in color, Change in hair/nails, Lesions, Pruritus, Rash Neurological: Reports: As per HPI. Denies: Abnormal gait, Confusion, Headache, Numbness, Paresthesias, Seizure, Tingling, Tremors, Vertigo, Weakness Psychiatric: Reports: As per HPI. Denies: Anxiety, Auditory hallucinations, Depression, Homicidal thoughts, Suicidal thoughts, Visual hallucinations Hematological/Lymphatic: Reports: As per HPI. Denies: Anemia, Blood Clots, Easy bleeding, Easy bruising, Swollen glands Past Medical History - SOCIAL HISTORY Smoking Status: Never smoker Alcohol Use: None Drug Use: None - RESPIRATORY Hx Respiratory Disorders: No - CARDIOVASCULAR Hx Cardio Disorders: Yes Hx Hypertension: Yes - NEURO Hx Neuro Disorders: Yes Hx Headaches: Yes Hx of Migraines: Yes (with stress) - GI Hx GI Disorders: Yes Hx Reflux: Yes Comment:: prolapsed rectum - Hx Genitourinary Disorders: Yes Hx Bladder Problem: Yes (stress incontinence) Comment:: pt has one kidney - ENDOCRINE Hx Endocrine Disorders: No - MUSCULOSKELETAL Hx Musculoskeletal Disorders: Yes Hx Arthritis: Yes Hx Fibromyalgia: Yes Comment:: gout - PSYCH Hx Psych Problems: Yes Hx Anxiety: Yes Hx Depression: Yes - HEMATOLOGY/ONCOLOGY Hx Hematology/Oncology Disorders: Yes Hx Cancer: Yes (3 little tumors in liver, pancrease and bowel told not to worry low grade) Family Medical History Any Significant Family History?: Yes Hx Cancer: Mother Hx Heart Disease: Mother Hx Kidney Disease: Brother/Sister Hx Resp Disorders: Father Physical Exam - General General Appearance: Alert, Oriented x3, Cooperative, Moderate distress - Head Head exam: Normal inspection - Eye Eye exam: Normal appearance, PERRL Pupils: Normal accommodation - ENT ENT exam: Normal exam, Mucous membranes moist, Normal external ear exam, Normal orophraynx, TM's normal bilaterally Ear exam: Normal external inspection. negative: External canal tenderness Nasal Exam: Normal inspection. negative: Discharge, Sinus tenderness Mouth exam: Normal external inspection, Tongue normal Teeth exam: Normal inspection. negative: Dental caries Throat exam: Normal inspection. negative: Tonsillar erythema, Tonsillar exudate - Neck Neck exam: Normal inspection, Full ROM. negative: Tenderness - Respiratory Respiratory exam: Normal lung sounds bilaterally. negative: Respiratory distress - Cardiovascular Cardiovascular Exam: Regular rate, Normal rhythm, Normal heart sounds - GI/Abdominal GI/Abdominal exam: Soft, Normal bowel sounds, Guarding, Tenderness (right upper quad pain) - Rectal Rectal exam: Deferred - exam: Deferred - Extremities Extremities exam: Normal inspection, Full ROM, Normal capillary refill. negative: Tenderness - Back Back exam: Reports: Normal inspection, Full ROM. Denies: Muscle spasm, Rash noted, Tenderness - Neurological Neurological exam: Alert, Normal gait, Oriented X3, Reflexes normal - Psychiatric Psychiatric exam: Normal affect, Normal mood - Skin Skin exam: Dry, Intact, Normal color, Warm Course Vital Signs 03/23/19 03/23/19 07:05 07:12 Temperature 98.5 F Pulse Rate 93 H Pulse Rate [ 109 H Pulse Ox Probe] Respiratory 20 20 Rate Blood Pressure 180/113 Blood Pressure 196/127 [Left Arm] Pulse Ox 98 98 - Reevaluation(s) Reevaluation #1: patient insisted on going to [place] and discussed case with ED physician and will transfer to Emergency department at [facility]. Discussed case with Dr. Buenrostro ED physician 03/23/19 09:38 03/23/19 09:46 Medical Decision Making - Data Complexity MDM Data: Labs Ordered and/or Reviewed (alkaline phos 1464, alt and alt slightly elevated and wbc 12,600, sodium 126), X-Ray Ordered and/or Reviewed (dilated gall bladder and duct of common duct ), EKG Ordered and/or Reviewed (NSR no acute changes) - Lab Data Result diagrams: 03/23/19 07:40 03/23/19 07:40 Disposition Clinical Impression: Gall bladder disease, Dilated gallbladder, Vomiting and diarrhea, Acute cholecystitis Abdominal pain Qualifiers: Abdominal location: right upper quadrant Qualified Code(s): R10.11 - Right upper quadrant pain Disposition: Acute Care Hospital Transfer Condition: (2) Stable Forms: Patient Portal Access Time of Disposition: 09:14 Quality - Quality Measures Quality Measures: N/A - Blood Pressure Screening Does Patient Have Any of the Following: No, Active Dx of HTN Blood Pressure Classification: Hypertensive Reading Systolic Measurement: 180 Diastolic Measurement: 113 Screening for High Blood Pressure: Patient Exclusion, Hx of HTN [G9744]
[2019-03-23 07:47] LABS: ABSOLUTE NEUTROPHIL COUNT 9.92; BASO % 0.3 % (0-6); EOS % 0.3 % (0-6); HEMATOCRIT 42.1 % (35.0-47.0); HEMOGLOBIN 13.8 gm/dl (11.6-16.0); LYMPH % 13.1 % (16-45); MEAN CELL VOLUME 81.4 fl (81-97); MEAN CORPUSCULAR HEMOGLOBIN 26.7 pg (27-33); MEAN CORPUSCULAR HGB CONC 32.8 g/dl (32-36); MEAN PLATELET VOLUME 9.6 fl (7.4-10.4); MONO % 7.3 % (0-9); PLATELET COUNT 462 K/uL (130-400); RED BLOOD COUNT 5.17 M/uL (3.80-5.40); RED CELL DISTRIBUTION WIDTH 17.5 % (11.5-14.5); WHITE BLOOD COUNT W/O DIFF 12.6 K/uL (4.2-12.2)
[2019-03-23] MEDS: ONDANSETRON HCL IV 4 MG/2 ML VIAL IV ONE (07:53)
[2019-03-23] MEDS: 0.9 % SODIUM CHLORIDE 1,000 ML BAG IV ONE (07:53)
[2019-03-23 08:00] LABS: BLOOD UREA NITROGEN 8 mg/dL (8-23); CREATININE 0.6 mg/dL (0.5-0.9); EST GLOMERULAR FILTRATION RATE > 60 mL/min
[2019-03-23 08:01] LABS: LIPASE 11 U/L (13-60); TOTAL PROTEIN 8.3 g/dL (6.6-8.7)
[2019-03-23 08:03] LABS: GLUCOSE,RANDOM 126 mg/dL (74-109)
[2019-03-23 08:05] LABS: ALBUMIN 3.9 g/dL (4.0-5.0); ALT/SGPT 94 U/L (<33); AST/SGOT 63 U/L (10.0-35.0)
[2019-03-23 08:18] LABS: ALKALINE PHOSPHATASE 1464 U/L (35-104); BILIRUBIN,DIRECT < 0.2 mg/dL (0-0.3)
--- NOTE | 2019-03-23 08:41 | CT SCAN REPORT ---
EXAMINATION: CT Abdomen and Pelvis without IV Contrast EXAM DATE: 03/23/2019 8:26 AM TECHNIQUE: Standard protocol CT imaging of the abdomen and pelvis was performed without intravenous c ontrast. INDICATION: upper abdominal pain vomiting and diarrhea COMPARISON: None ENCOUNTER: Not applicable CT ABDOMEN AND PELVIS FINDINGS: Lung Bases: Included extent of the lung bases are clear. Hepatobiliary: The liver has a normal size with a smooth surface. Gallbladder hydrops 5.1 cm diamete r. No gallstones or wall thickening. Intrahepatic biliary ductal dilatation. 11 mm CBD. No obstructin g calculus. Follow-up MRCP as clinically directed. Pancreas: Poorly demonstrated pancreas. Prominent pancreatic head difficult to evaluate without oral and IV contrast. Atrophic body and tail. Spleen: The spleen is not enlarged. Adrenals: The adrenal glands are normal. Kidneys, Ureters, & Bladder: Left nephrectomy. Unremarkable right kidney. No obstruction bladder subo ptimally demonstrated due to artifact from bilateral hip prostheses Gastrointestinal: The stomach and small bowel are normal with no obstruction or inflammation. Appendi x not demonstrated. Colonic wall thickening. Sigmoid diverticulosis. Follow-up colonoscopy as clinica lly directed. Reproductive Organs: The uterus is absent. Lymphatic System: There is no adenopathy within the abdomen or pelvis. Vasculature: Normal caliber abdominal aorta Peritoneum: No free fluid, free air, or inflammation Abdominal wall & Musculoskeletal: No suspicious bone lesions. Mild degenerative change LS-spine. Mild superior endplate compression deformity T12. 11 mm cyst or lytic lesion spinous process of L4. Follo w-up MRI as clinically directed Assessment of the solid organs, soft tissues, and vascular structures is overall limited on noncontra st imaging, IMPRESSION: 1. Gallbladder hydrops. Intrahepatic and extrahepatic biliary ductal dilatation. 2. Pancreas is poorly demonstrated. Prominent pancreatic head probable atrophic body and tail. Follow -up MRCP for further workup as clinically directed 3. Left nephrectomy 4. Colonic wall thickening. Follow-up colonoscopy 5. Sigmoid diverticulosis. 6. Mild superior endplate T12 compression deformity. Sr. lytic lesion spinous process L4. Follow-up M RI as clinically directed 7. Limited noncontrast study NOTE: There is a follow-up recommendation in this report. Dictated by: Jostin Church MD on 03/23/2019 8:28 AM. .
[2019-03-23] MEDS: KETOROLAC 30 MG/ML VIAL IVP ONE (08:46)
== END 2019-03-23 10:25 | disposition short-term general hospital (02) ==
LOC: ER 07:04
DX: K81.0 Acute cholecystitis (principal); R11.2 Nausea with vomiting, unspecified; R19.7 Diarrhea, unspecified; I10 Essential (primary) hypertension
CPT/HCPCS: 74176; 80048; 80076; 83690; 85025; 93005; 93010; 96361; 96374; 96375; 99285; J1885; J2405; J7030